=== PATIENT | male | born 1975 | race Caucasian/White ===

== ENCOUNTER 2020-07-27 12:03 | Outpatient (NON) | payer OTHER, SELFPAY ==
[2020-07-27 21:48] LABS: SARS-CoV-2 RNA PCR Negative
== END 2020-07-27 12:04 ==
LOC: ANHCOVIDDT 12:04
PROVIDERS: PCP Family Medicine; Visit Provider Family Medicine
DX: J01.00 Acute maxillary sinusitis, unspecified (principal); Z20.828 Contact with and (suspected) exposure to other viral communicable diseases
CPT/HCPCS: 87635; C9803; U0003

== ENCOUNTER 2020-09-08 15:57 | Outpatient (CLI) | payer OTHER, SELFPAY ==
--- NOTE | ~2020-09-08 | US_ITS ---
EXAMINATION: US thyroid DATE: 09/08/2020 16:37 INDICATION: Goiter TECHNIQUE: Multiple ultrasound images of the thyroid were obtained. COMPARISON: None. FINDINGS: The right thyroid lobe measures 4.7 x 2.8 x 1.2 cm. The left thyroid lobe measures 5.0 x 2.6 x 1.5 c m. Likely benign 5 mm hypoechoic left thyroid nodule without echogenic foci. There is normal echotex ture, echogenicity and vascular flow throughout the thyroid gland. IMPRESSION: 1. Likely benign 5 mm left thyroid nodule which does not reach size criteria for either biopsy or fol low-up. Reviewed, dictated and finalized at location A. 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 Likely benign 5 mm left thyroid nodule which does not reach size criteria fo r either biopsy or follow-up.
== END 2020-09-08 15:58 | disposition home or self-care (01) ==
PROVIDERS: PCP Family Medicine; Visit Provider Otolaryngology
DX: E04.0 Nontoxic diffuse goiter (principal)
CPT/HCPCS: 76536

== ENCOUNTER 2021-02-19 02:00 | Day surgery (SDC) | payer OTHER, SELFPAY ==
[2021-02-14 09:22] VITALS: BMI 35.4
[2021-02-19] VITALS (8 sets, daily range): BP systolic 101–167; BP diastolic 60–94; PULSE 59–80; RESP 12–18; TEMP 36.2–36.3; O2SAT 92–100
--- NOTE | 2021-02-19 07:19 | WPDHPUPDATE1 ---
History and Physical Update Update Date/Time: 02/19/21 07:19 History and Physical has been reviewed, including an updated exam of the patient. There are NO changes in the patient's condition. Risks, benefits, and alternatives have been discussed and questions answered. Patient agrees to proceed with procedure.
[2021-02-19] MEDS: ACETAMINOPHEN 500 MG TABLET 1000 MG PO (07:48)
[2021-02-19] MEDS: LACTATED RINGERS 1,000 ML 30 ML IV CONT (07:51)
[2021-02-19] MEDS: OXYMETAZOLINE HCL 0.05% NAS 15 ML BTL (*BKC) 1 SPRAY NASAL (07:51)
--- NOTE | 2021-02-19 07:56 | WPDANESEPPF ---
Anes - Initial Pre Proc Eval Procedure: Operation Date: 02/19/21 09:30 Proposed Procedures p Septoplasty, - Hugo Smith MD s Bilateral Turbinate Reduction, Right Ofelia Bullosa Resection - Hugo Smith MD Date/Time: 02/19/21 07:56 Surgeon: Hugo Smith MD Pre Op Diagnosis: Deviated septum, turbinate hypertrophy Patient Data Age: 45 Gender: M Height: 1.75 m Weight: 108.86 kg Allergies Allergy/AdvReac Type Severity Reaction Status Date / Time No Known Allergies Allergy Unverified 06/28/19 12:57 Home Medications Medication Instructions Recorded Confirmed Type fluticasone propionate 50 1 spray NASAL BID #16 g 12/13/20 02/14/21 Rx mcg/actuation nasal spray,suspension Patient hx anesthesia problems: none Family hx anesthesia problems: none PMFSH Past Medical History Medical History (Updated 07/27/20 @ 10:48 by Lucho Messina MD) Acute non-recurrent maxillary sinusitis Adult BMI 37.0-37.9 kg/sq m Chronic nonallergic rhinitis Encounter for prostate cancer screening Fatty liver Left knee pain Multinodular goiter OSCAR on CPAP Positive GRAYSON (antinuclear antibody) STD exposure Vitamin D deficiency, unspecified Family History Family History (Updated 04/13/19 @ 16:19 by DOCTOR UNKNOWN) Mother Patient's mother is , Onset Age: 48 Family history of malignant neoplasm of breast in first degree relative Social History Social History Smoking status: Never smoker Alcohol intake: current Living arrangements: alone Anes - Eval Final PreProcedure Day of Procedure 02/19/21 07:56 Patient weight: obese Heart: regular rate and rhythm Lungs: clear to auscultation and normal air movement Airway: Mallampati scale class II Neurological: alert and oriented Last oral intake: >/= 8 hours ASA classification: III Emergent: no Anesthetic plan: proceed Anesthesia type and monitoring: general ETT and standard monitoring Informed Consent: The patient's anesthetic plan and its attendant risks and benefits were discussed with the patient/family/POA. Questions were solicited and answers provided to the satisfaction of the patient/family/POA.
[2021-02-19] MEDS: ceFAZolin 2 GM/D5W 50 ML 2 GM/50 ML BAG IVPB (08:42)
[2021-02-19] MEDS: LIDO 1%/EPINEPHRINE 1:100,000 50 ML VIAL INFILTRATE (09:05)
--- NOTE | 2021-02-19 10:02 | P.OP_ITS ---
Procedure Note - Detailed Date of Procedure 02/19/21 Pre-op Diagnosis Deviated septum, turbinate hypertrophy, right janae bullosa Post-op Diagnosis same Procedure Performed Septoplasty, bilateral inferior turbinoplasty, right janae bullosectomy Surgeon Hugo Smith MD Anesthesia general Indications Nasal obstruction Findings Right deviated septum, right janae bullosa, bilateral turbinate hypertrophy Description of Procedure After obtaining informed consent and proper site verification the patient was brought to the operating room and placed on the operating table in the supine position. They were placed under general endotracheal anesthesia by the anesthesia provider. The patient was then draped in standard fashion for septoplasty and turbinoplasty. A timeout was performed and the correct patient and procedure were verified. The nasal cavity was injected with 1% lidocaine with 1-100,000 epinephrine and packed with afrin-soaked cottonoid pledgets. ? Attention was then directed to the nasal septum. A hemitransfixion incision was made in the left caudal septum and a mucoperichondrial flap was elevated in the usual fashion. The flap was elevated under endoscopic visualization and the remainder of the case was performed with endoscopic assistance. Using a D- knife, an incision was made through the cartilaginous septum with care to preserve the appropriate caudal and dorsal ?L-strut? of cartilage. The cartilage was then disarticulated from the bony-cartilaginous junction and the deviated cartilage was removed. Further deviated bone and cartilage was removed from the maxillary crest and posterior bony septum with care to avoid injury to the mucoperichondrial flap using a combination of dissection and Kelvin- Tomas forceps. Once this was completed, the hemitransfixion incision was closed using simple interrupted 4-0 chromic suture. A quilting stitch to reapproximate the mucoperichondrial flaps was then placed using 4-0 plain gut suture on a Ross needle. ? Next attention was directed to the turbinates. Using a 0? telescope and 2mm turbinate blade microdebrider, a stab incision was made in the anterior face of the turbinate and dissection was carried posterior to perform submucosal resection. Next the turbinate was outfractured using a blunt instrument. A similar procedure was then performed on the right-hand side without difficulty. Lastly, using priscila elevator and travis-cut forceps, the right janae bullosa was resected. Fontana splints covered in mupirocin ointment were placed in the nasal cavity and secured to the membranous septum using a 3-0 Prolene suture. ?The patient was awakened from general anesthesia extubated in the operating room, and transported to the recovery room in stable condition without complication. Estimated Blood Loss 100 Drains No Packing Yes (bilateral fontana splints) Pathology none sent Complications No immediate complications Condition stable Disposition same day
[2021-02-19] MEDS: ONDANSETRON INJ 4 MG/2 ML VIAL IV PUSH (10:50)
== END 2021-02-19 11:35 | disposition home or self-care (01) ==
PROVIDERS: PCP Family Medicine; Visit Provider Otolaryngology
PROC: (CPT 30520; principal; 2021-02-19 09:30)
PROC: (CPT 30140; 2021-02-19 09:30)
DX: J34.2 Deviated nasal septum (principal); J34.3 Hypertrophy of nasal turbinates; J34.89 Other specified disorders of nose and nasal sinuses; E04.2 Nontoxic multinodular goiter; K76.0 Fatty (change of) liver, not elsewhere classified; G47.33 Obstructive sleep apnea (adult) (pediatric); E55.9 Vitamin D deficiency, unspecified; E66.9 Obesity, unspecified; Z68.37 Body mass index [BMI] 37.0-37.9, adult
CPT/HCPCS: 30140; 30520; 31240; A9270; J0690; J1100; J2250; J2270; J2405; J2704; J2710; J7120

== ENCOUNTER → 2021-10-11 15:03 | Outpatient (CLI) | payer OTHER, SELFPAY ==
--- NOTE | ~2021-10-11 | XR_ITS ---
EXAMINATION: XR shoulder RT min 2V DATE: 10/11/2021 15:26 INDICATION: Right shoulder pain. TECHNIQUE: 4 views of right shoulder were obtained. COMPARISON: Right shoulder radiographs 04/13/2019 FINDINGS: Bone alignment is normal. No fracture. There is mild osteoarthritis of glenohumeral joint. Acromioclavicular joint is normal. IMPRESSION: 1. Mild osteoarthritis of glenohumeral joint. Reviewed, dictated and finalized at location A.
--- NOTE | ~2021-10-11 | XR_ITS ---
EXAMINATION: XR shoulder LT min 2V DATE: 10/11/2021 15:26 INDICATION: Left shoulder pain. TECHNIQUE: 5 views of left shoulder were obtained. COMPARISON: Left shoulder radiographs 04/13/2019 FINDINGS: Bone alignment is normal. No fracture. There is mild osteoarthritis of glenohumeral joint a nd acromioclavicular joint. IMPRESSION: 1. Mild polyarticular osteoarthritis. Reviewed, dictated and finalized at location A.
== END ==
LOC: EXPTRAD 15:06
PROVIDERS: PCP Family Medicine; Visit Provider Family Medicine
DX: M19.011 Primary osteoarthritis, right shoulder (principal); M19.012 Primary osteoarthritis, left shoulder
CPT/HCPCS: 73030

== ENCOUNTER → 2023-03-18 16:10 | Outpatient (CLI) | payer OTHER, SELFPAY ==
--- NOTE | ~2023-03-18 | XR_ITS ---
EXAMINATION: XR ankle LT min 3V DATE: 03/18/2023 16:24 INDICATION: Left ankle pain TECHNIQUE: Anteroposterior, lateral, mortise, and additional oblique view of the ankle were obtained. COMPARISON: None. FINDINGS: No fracture, dislocation, or subluxation. The bones and soft tissues are normal. There is m ild osteoarthritis of the midfoot. IMPRESSION: 1. Mild osteoarthritis of the midfoot. Reviewed, dictated and finalized at location A.
== END ==
LOC: EXPTRAD 16:17
PROVIDERS: PCP Family Medicine; Visit Provider Family Medicine
DX: M19.072 Primary osteoarthritis, left ankle and foot (principal)
CPT/HCPCS: 73610